=== PATIENT | male | born 1980 | race American Indian/Alaskan Native ===

== ENCOUNTER 2017-09-21 23:55 | Emergency (ER) | payer BC, OTHER ==
--- NOTE | 2017-09-22 00:59 | ED PDOC ---
HPI: Chest Pain Time Seen by Provider: 09/22/17 00:03 Chief Complaint (Nursing): Chest Pain Chief Complaint (Provider): Chest Pain History Per: Patient History/Exam Limitations: no limitations Onset/Duration Of Symptoms: Days (x1 month) Current Symptoms Are (Timing): Still Present Additional Complaint(s): 37 y/o male with a pmhx of asthma, who presents to the ED for evaluation of right sided chest pain x1 month. Patient states his chest pain has been intermittent for the past month. He reports having 2 CXR, a liver US, and blood work which were inconclusive. He states today he sneezed and his pain became acutely worse. He denies nausea, vomiting, or diaphoresis. He reports his pain is worse when breathing. PMD: ALECIA Past Medical History Reviewed: Historical Data, Nursing Documentation, Vital Signs Vital Signs: Last Vital Signs Temp 97.6 F 09/21/17 23:58 Pulse 106 H 09/21/17 23:58 Resp 16 09/21/17 23:58 BP 125/83 09/21/17 23:58 Pulse Ox 96 09/22/17 01:03 - Medical History PMH: Asthma - Surgical History Surgical History: No Surg Hx - Family History Family History: States: Unknown Family Hx - Social History Current smoker - smoking cessation education provided: Yes Alcohol: None Drugs: Denies - Home Medications Home Medications: Ambulatory Orders Medication Instructions Recorded Albuterol 0.09 mg IH Q4H PRN 09/09/14 Albuterol [Proventil] 0.09 2 IH Q6 PRN #1 inhaler 09/09/14 Budesonide/Formoterol Fumarate 1 aer IH BID 09/09/14 [Symbicort] Cetirizine Hydrochloride [Zyrtec] 10 mg PO DAILY #7 tab 09/09/14 Prednisone 3 tab-cap PO QAM #15 tab 09/09/14 Naproxen [Naprosyn] 500 mg PO Q12 #20 tab 09/22/17 - Allergies Allergies/Adverse Reactions: Allergies Allergy/AdvReac Type Severity Reaction Status Date / Time No Known Allergies Allergy Verified 09/21/17 23:57 Review of Systems ROS Statement: Except As Marked, All Systems Reviewed And Found Negative Constitutional: Negative for: Sweats Cardiovascular: Positive for: Chest Pain Gastrointestinal: Negative for: Nausea, Vomiting Physical Exam - Reviewed Nursing Documentation Reviewed: Yes Vital Signs Reviewed: Yes - Physical Exam Appears: Positive for: Non-toxic, No Acute Distress Head Exam: Positive for: ATRAUMATIC, NORMAL INSPECTION, NORMOCEPHALIC Skin: Positive for: Normal Color, Warm, Dry. Negative for: Rash Eye Exam: Positive for: EOMI, Normal appearance, PERRL Neck: Positive for: Normal, Painless ROM, Supple Cardiovascular/Chest: Negative for: Chest Non Tender (point tenderness along the right 5/6 rib in anterior axillary line) Respiratory: Positive for: Normal Breath Sounds. Negative for: Respiratory Distress Gastrointestinal/Abdominal: Positive for: Normal Exam, Soft. Negative for: Tenderness Back: Positive for: Normal Inspection. Negative for: L CVA Tenderness, R CVA Tenderness, Vertebral Tenderness Extremity: Positive for: Normal ROM. Negative for: Pedal Edema, Deformity Neurologic/Psych: Positive for: Alert, Oriented. Negative for: Motor/Sensory Deficits - Laboratory Results Result Diagrams: 09/22/17 00:57 09/22/17 00:57 - ECG O2 Sat by Pulse Oximetry: 96 (RA) Pulse Ox Interpretation: Normal Medical Decision Making Medical Decision Making: Initial Impression: 37 y/o male with chest pain Initial Plan: --CT Angio Chest --EKG --CMP --Drug screen --Troponin I --CBC --Toradol 15mg IVP --Reevaluation 03:08 CT ANGIO CHEST WITH IV CONTRAST FINDINGS: Pulmonary arteries: Unremarkable. No pulmonary embolism. Aorta: No acute findings. No thoracic aortic aneurysm. Lungs: Unremarkable. No mass. No consolidation. Pleural space: Unremarkable. No significant effusion. No pneumothorax. Heart: Unremarkable. No cardiomegaly. No significant pericardial effusion. No evidence of RV dysfunction. Bones/joints: No acute fracture. No dislocation. Soft tissues: Unremarkable. Lymph nodes: Unremarkable. No enlarged lymph nodes. IMPRESSION: Unremarkable chest CTA. No pulmonary embolism. 03:30 Labs reviewed and no clinically significant abnormalities were found. Although patient utox positive for cocaine, patient denies use within the last week. Counseled patient to avoid use of illicit substances such as cocaine and stable for discharge. Scribe Attestation: Documented by Kolby Cristobal, acting as a scribe for Mauri Walker MD. Provider Scribe Attestation: All medical record entries made by the Scribe were at my direction and personally dictated by me. I have reviewed the chart and agree that the record accurately reflects my personal performance of the history, physical exam, medical decision making, and the department course for this patient. I have also personally directed, reviewed, and agree with the discharge instructions and disposition. Disposition - Clinical Impression Clinical Impression: Chest pain, pleuritic - Patient ED Disposition Is Patient to be Admitted: No Counseled Patient/Family Regarding: Studies Performed, Diagnosis, Need For Followup, Rx Given - Disposition Disposition: Routine/Home Disposition Time: 03:30 Condition: STABLE Prescriptions: Naproxen [Naprosyn] 500 mg PO Q12 #20 tab Instructions: Costochondritis, Pleuritic Chest Pain (DC) Forms: [employer] (Telugu)
[2017-09-22 01:00] LABS: BASO % 0.6 % (0.0-2.0); EOS # 0.3 K/uL (0.0-0.7); EOS % 5.3 % (0.0-4.0); HEMOGLOBIN 14.8 g/dL (12.0-18.0); LYMPH # 1.7 K/uL (1.0-4.3); LYMPH % 30.7 % (20.0-40.0); MEAN CELL VOLUME 88.4 fl (80.0-94.0); MEAN CORPUSCULAR HEMOGLOBIN 28.8 pg (27.0-31.0); MEAN CORPUSCULAR HGB CONC 32.6 g/dL (33.0-37.0); MEAN PLATELET VOLUME 7.5 fl (7.2-11.7); MONO # 0.6 K/uL (0.0-0.8); MONO % 10.4 % (0.0-10.0); RBC 5.14 Mil/uL (4.40-5.90); RED CELL DISTRIBUTION WIDTH 13.9 % (11.5-14.5); WHITE BLOOD COUNT 5.6 K/uL (4.8-10.8)
[2017-09-22 01:07] LABS: ALB/GLOB RATIO 1.3 (1.0-2.1); ALBUMIN 4.1 g/dL (3.5-5.0); ALT/SGPT 78 U/L (21-72); AST/SGOT 62 U/L (17-59); BLOOD UREA NITROGEN 19 mg/dl (9-20); CALCIUM 9.1 mg/dL (8.4-10.2); GFR AFRICAN-AMERICAN > 60; GFR NON-AFRICAN AMERICAN > 60
[2017-09-22] MEDS ORDERED: Sodium Chloride 0.9% 50 ML IV ONE (01:15)
[2017-09-22] MEDS ORDERED: Iodixanol 320 MG/ML 100 ML BOTTLE IV ONE (01:15)
[2017-09-22 01:25] LABS: BARBITURATES, UR NEGATIVE (NEGATIVE); BENZODIAZEPINES, UR NEGATIVE (NEGATIVE); OPIATES, UR NEGATIVE (NEGATIVE); PHENCYCLIDINE, UR NEGATIVE (NEGATIVE)
--- NOTE | 2017-09-22 03:08 | CT ---
EXAM: CT Angiography Chest With Intravenous Contrast CLINICAL HISTORY: 37 years old, male; Pain; Chest pain; Right-sided chest pain; Additional info: Chest pain R/O pe TECHNIQUE: Axial computed tomographic angiography images of the chest with intravenous contrast using pulmonary embolism protocol. All CT scans at this facility use one or more dose reduction techniques, viz.: automated exposure control; ma/kV adjustment per patient size (including targeted exams where dose is matched to indication; i.e. head); or iterative reconstruction technique. MIP reconstructed images were created and reviewed. Coronal and sagittal reformatted images were created and reviewed. CONTRAST: 95 mL of visipaque 320 administered intravenously. COMPARISON: No relevant prior studies available. FINDINGS: Pulmonary arteries: Unremarkable. No pulmonary embolism. Aorta: No acute findings. No thoracic aortic aneurysm. Lungs: Unremarkable. No mass. No consolidation. Pleural space: Unremarkable. No significant effusion. No pneumothorax. Heart: Unremarkable. No cardiomegaly. No significant pericardial effusion. No evidence of RV dysfunction. Bones/joints: No acute fracture. No dislocation. Soft tissues: Unremarkable. Lymph nodes: Unremarkable. No enlarged lymph nodes. IMPRESSION: Unremarkable chest CTA. No pulmonary embolism.
[2017-09-22 04:09] VITALS: TEMP 98.6
[2017-09-22 04:31] VITALS: BP 106/69; PULSE 76; RESP 16; O2SAT 100
--- NOTE | 2017-09-22 10:51 | CARD ---
APPROVED REPORT EKG Measurement Heart [id number] <Conclusion> Normal sinus rhythm Possible Left atrial enlargement ??Cannot rule out Anterior infarct, age undetermined (Check V3 lead placement. Abnormal ECG
== END 2017-09-22 04:10 | disposition home or self-care (01) ==
LOC: H.ER 23:55
DX: J45.909 Unspecified asthma, uncomplicated (principal); F17.200 Nicotine dependence, unspecified, uncomplicated
CPT/HCPCS: 71275; 80053; 84484; 85025; 93005; 96374; 99283; G0480; J1885; Q9967